=== PATIENT | female | born 1995 | race Caucasian/White ===

== ENCOUNTER → 2017-01-06 | Outpatient (CLI) | payer OTHER | LOC: M OUTALCOH 14:42 | PROVIDERS: ATTEND Psychiatry & Neurology Psychiatry | DX: F11.20 Opioid dependence, uncomplicated (principal); F15.20 Other stimulant dependence, uncomplicated ==

== ENCOUNTER 2017-02-08 15:00 | Outpatient (RCR) | payer OTHER | END 2017-02-10 | LOC: M OUTALCOH 15:00 | PROVIDERS: ATTEND Psychiatry & Neurology Psychiatry | DX: F11.20 Opioid dependence, uncomplicated (principal); F15.20 Other stimulant dependence, uncomplicated; F17.200 Nicotine dependence, unspecified, uncomplicated ==

== ENCOUNTER 2017-03-07 10:00 | Outpatient (RCR) | payer OTHER | END 2017-03-12 | LOC: M OUTALCOH 10:00 | PROVIDERS: ATTEND Psychiatry & Neurology Psychiatry | DX: F11.20 Opioid dependence, uncomplicated (principal); F15.20 Other stimulant dependence, uncomplicated; F17.200 Nicotine dependence, unspecified, uncomplicated ==

== ENCOUNTER 2017-04-06 13:00 | Outpatient (RCR) | payer OTHER | END 2017-04-12 | LOC: M OUTALCOH 13:00 | PROVIDERS: ATTEND Psychiatry & Neurology Psychiatry | DX: F11.20 Opioid dependence, uncomplicated (principal); F15.20 Other stimulant dependence, uncomplicated; F17.200 Nicotine dependence, unspecified, uncomplicated ==

== ENCOUNTER → 2017-05-12 | Outpatient (RCR) | payer OTHER | LOC: M OUTALCOH 04-17 09:21 | PROVIDERS: ATTEND Psychiatry & Neurology Psychiatry | DX: F11.20 Opioid dependence, uncomplicated (principal); F15.20 Other stimulant dependence, uncomplicated; F17.200 Nicotine dependence, unspecified, uncomplicated ==

== ENCOUNTER 2017-06-08 14:00 | Outpatient (RCR) | payer OTHER | END 2017-06-12 | LOC: M OUTALCOH 14:00 | PROVIDERS: ATTEND Psychiatry & Neurology Psychiatry | DX: F11.20 Opioid dependence, uncomplicated (principal); F15.20 Other stimulant dependence, uncomplicated; F17.200 Nicotine dependence, unspecified, uncomplicated ==

== ENCOUNTER 2017-07-12 08:00 | Outpatient (RCR) | payer OTHER | END 2017-07-13 | LOC: M OUTALCOH 08:00 | PROVIDERS: ATTEND Psychiatry & Neurology Psychiatry | DX: F11.20 Opioid dependence, uncomplicated (principal); F15.20 Other stimulant dependence, uncomplicated; F17.200 Nicotine dependence, unspecified, uncomplicated ==

== ENCOUNTER 2017-08-03 13:00 | Outpatient (RCR) | payer OTHER | END 2017-08-12 | LOC: M OUTALCOH 13:00 | PROVIDERS: ATTEND Psychiatry & Neurology Psychiatry | DX: F11.20 Opioid dependence, uncomplicated (principal); F15.20 Other stimulant dependence, uncomplicated; F17.200 Nicotine dependence, unspecified, uncomplicated ==

== ENCOUNTER → 2019-06-10 | Outpatient (REF) | LOC: M LAB LCGH 15:47 | PROVIDERS: ATTEND Obstetrics & Gynecology | DX: O48.0 Post-term pregnancy (principal) ==

== ENCOUNTER 2019-12-23 08:47 | Day surgery (SDC) | payer OTHER ==
[~2019-12-23] VITALS: Ht 170.2 cm; Wt 104.7 kg
[~2019-12-23 08:47] MED LIST: AMPICILLIN SOD/SULBACTAM SOD 3 GM in D5W MINI-BAG PLUS 100 ML IV ONE; BUPR8SUB SL; IBUP-1114 PO; LR 1,000 ML IV ONE; MIRE1IUD IU; dexameTHASONE 4 MG/ML 1ML VIAL (J1100) IV ONE
--- NOTE | 2019-12-23 09:55 | ECGEPIP ---
[facility] Test Date: 2019-12-23 Pat Name: ZE WATIKNS Department: Room: - Gender: Female Clinical Data Associate: VASHTI : 1995 Requested By: JESSE Camacho Order Number: [id number] Reading MD: Martha Chapa Measurements Intervals [place] Rate: 65 P: 34 MT: 190 QRS: 24 QRSD: 94 T: 30 QT: 399 QTc: 417 Interpretive Statements SINUS RHYTHM WITH SINUS ARRHYTHMIA NO PRIOR Electronically Signed on 12-23-2019 9:54:41 EST by Martha Chapa
[2019-12-23] MEDS ORDERED: propofoL 200 MG/20 ML VIAL As Ordered ONE ×2 (10:21→11:53)
[2019-12-23] MEDS ORDERED: LIDOCAINE 2% INJ 100 MG/5 ML SDV (FOR ANES.) As Ordered ONE (10:21)
[2019-12-23] MEDS ORDERED: ROCURONIUM BROMIDE 50 MG/5 ML VIAL As Ordered ONE (10:22)
[2019-12-23] MEDS ORDERED: KETAMINE HCL 200 MG/20 ML VIAL As Ordered ONE (10:22)
[2019-12-23] MEDS ORDERED: dexameTHASONE 4 MG/ML 1ML VIAL (J1100) As Ordered ONE (10:22)
[2019-12-23] MEDS ORDERED: ONDANSETRON 4MG/2ML VIAL (J2405) As Ordered ONE (10:22)
[2019-12-23] MEDS ORDERED: MIDAZOLAM INJ 2 MG/2 ML VIAL (J2250) As Ordered ONE (10:22)
[2019-12-23] MEDS ORDERED: fentaNYL 100 MCG/2 ML INJECTION (J3010) As Ordered ONE (10:22)
[2019-12-23] MEDS ORDERED: LIDOCAINE 2% W/ EPINEPHRINE 1.7 ML DENTAL INJ As Ordered ONE (11:23)
[2019-12-23] MEDS ORDERED: GLYCOPYRROLATE INJ 0.2 MG/ML 2 ML VIAL As Ordered ONE (11:47)
[2019-12-23] MEDS ORDERED: SUGAMMADEX SODIUM 500 MG/5 ML VIAL (BRIDION) As Ordered ONE (11:58)
[2019-12-23] MEDS ORDERED: ACETAMINOPHEN 1000MG 100ML IV BTL (OFIRMEV) (J0131 PER 10MG) As Ordered ONE (11:58)
[2019-12-23] MEDS ORDERED: ESMOLOL INJ 100MG/10ML VIAL As Ordered ONE (12:14)
[2019-12-23] MEDS ORDERED: KETOROLAC 60 MG/2 ML VIAL (J1885) As Ordered ONE (12:20)
--- NOTE | 2019-12-23 12:45 | RO ---
DATE OF PROCEDURE: 12/23/2019 SURGEON: Ari Hensno DMD, MD MANAGER PHOTOGRAPHY: PREOPERATIVE DIAGNOSES: 1. Morbid obesity. 2. Hopeless and carious teeth number 19, 20, 21, 22, 23, 24, 25, 26, 27, 28, 29, and 31. POSTOPERATIVE DIAGNOSES: Status post: 1. Morbid obesity. 2. Hopeless and carious teeth number 19, 20, 21, 22, 23, 24, 25, 26, 27, 28, 29, and 31. PROCEDURE PERFORMED: Surgical extraction of the aforementioned teeth. ANESTHESIA USED: General endotracheal anesthesia via nasal ray. SPECIMEN: Teeth for gross only. INDICATIONS FOR SURGERY: Mrs. Ramos is a pleasant 24-year-old female referred to my office by her dentist for evaluation for extraction of all of her remaining teeth. Clinically, she has morbid obesity, and she has a severe dental anxiety, and she is not a candidate for office anesthesia. I did offer nitrous oxide in the office versus general anesthesia in the operating room (OR), and she elected the latter. Clinical examination reveals edentulous maxilla with grossly decayed remaining mandibular teeth, [address], as well as 31, with gingival inflammation and poor oral hygiene, Mallampati 4, and a difficult airway. A history and physical was performed and is in the patient's chart; and informed consent was obtained and also is in the patient's chart. DESCRIPTION OF PROCEDURE: The patient presented to preoperative holding. Any last-minute questions were addressed. History and physical and consent were updated. She was then taken back to the operating room. She was laid supine on the operating room table. Ulnar nerve protectors were placed. Noninvasive cardiac monitors were applied. At that point, the patient underwent general anesthesia and was intubated with a nasal ray. She was then prepped and draped in the usual sterile fashion. A time-out procedure was performed to identify the patient, the procedure, and any other precautions. Preoperative antibiotics and steroid were administered in the IV. Once this was performed, a moist throat pack was inserted in the patient's oropharynx followed by the administration of six carpules of 2% lidocaine with 1:100,000 epinephrine as local infiltration and blocks. A full-thickness flap was released at sites number 19, 20, 21, 22, 27, 28, 29, and 31. A small amount of buccal bone was removed from the facial aspect of the crowns of those teeth, and then the teeth were luxated and delivered without any incident. All sockets were curetted and irrigated. Flaps were closed with 3-0 chromic sutures. At this point, routine forceps extraction of teeth number 23, 24, 25, 26 was performed. Sockets were copiously irrigated and curetted. At this point, oral cavity was copiously irrigated and suctioned. Gauze hemostasis was easily achieved. The throat pack was removed. The patient was then awakened from anesthesia and taken back to the postanesthesia care unit (PACU). COMPLICATIONS: None to mention at time of surgery. ESTIMATED BLOOD LOSS: 10 mL. DRAINS: There were no drains placed.
[2019-12-23] MEDS ORDERED: LR 1,000 ML IV SCH (13:30)
[2019-12-23] MEDS ORDERED: IBUPROFEN 600 MG TAB PO PRN (13:30)
[2019-12-23] MEDS ORDERED: ONDANSETRON 4MG/2ML VIAL (J2405) IV PRN (13:30)
[2019-12-23 14:45] VITALS: BP 128/58
== END 2019-12-23 15:02 | disposition home or self-care (01) ==
LOC: M SDC 08:47
PROVIDERS: ATTEND Dentist
DX: K02.9 Dental caries, unspecified (principal); E66.01 Morbid (severe) obesity due to excess calories; Z68.36 Body mass index [BMI] 36.0-36.9, adult; R94.31 Abnormal electrocardiogram [ECG] [EKG]; F41.9 Anxiety disorder, unspecified; F32.9 Major depressive disorder, single episode, unspecified; G43.909 Migraine, unspecified, not intractable, without status migrainosus; F43.10 Post-traumatic stress disorder, unspecified; F17.210 Nicotine dependence, cigarettes, uncomplicated; F11.11 Opioid abuse, in remission; Z79.899 Other long term (current) drug therapy; Z97.5 Presence of (intrauterine) contraceptive device
CPT/HCPCS: 81025; 88300; 93005; D7140; D7210; D9223; J0131; J1100; J1885; J2250; J2405; J3010